=== PATIENT | female | born 1995 | race Caucasian/White ===

== ENCOUNTER 2019-06-05 17:55 | Emergency (ER) | payer OTHER ==
[~2019-06-05] VITALS: Ht 162.6 cm; Wt 126.1 kg
[~2019-06-05 17:55] MED LIST: ANUSOL-HC30 GM PR; BACTRIM DS TAB1 EACH PO; CALCIO DEL MAR500 MG PO; HYDROCODONE-AC473 ML PO; LORTAB 10 MG-3473 ML PO; MACROBID 100 M100 MG PO; METFORMIN HCL500 MG PO; MIRENA1 EACH IY; NORCO 5-325 TA1 EACH PO; OXYCODONE H5 MG/5 ML PO; PRENA1 PLUS CO1 EACH PO
--- OUTSIDE RECORDS SUMMARY | 2019-06-05 18:02 | XMS ---
PreManage Notification: HAYDEN CANDELARIA Security Ash Collector Events No recent Security Events currently on file CRITERIA MET - [place] [facility] [place] [place] CLIFFORD Physician Crystal Slicer 01/29/2019-Current PHONE: Unknown RENA KAPLAN [facility] Current Michela Cortez PHONE: Unknown EDENILSON BRAND Primary Care 05/08/2016-Current PHONE: [phone] Primary Care 05/08/2016-Current PHONE: Unknown Bj has no Care Guidelines for this patient. Care History Medical/Surgical 01/26/2019 [facility] - Patient is currently established with [facility]. If patient is seen in the ED during business hours. Please contact [facility] at [facility]. Care Recommendation: This patient has had 5 or more Emergency Department visits in the last 12 months.\T\nbsp; Patient requires education on the scope and purpose of the ED as an acute care provider not a Primary Care Provider and should not be utilized for chronic conditions.\T\nbsp; These are guidelines and the provider should exercise clinical judgment when providing care. E.D. VISIT COUNT (12 MO[address] 2 [facility]. TOTAL 2 NOTE: Visits indicate total known visits. ED/UCC VISIT TRACKING (12 MO.) 06/05/2019 17:59 [facility] TYPE: Emergency COMPLAINT: - ABDOMINAL PAIN 01/25/2019 21:05 [facility] TYPE: Emergency COMPLAINT: - MULTIPLE COMPLAINTS DIAGNOSES: - Dizziness and giddiness INPATIENT VISIT TRACKING (12 MO.) No inpatient visits to display in this time frame [id number]
== END 2019-06-05 21:32 | disposition home or self-care (01) ==
LOC: ED 17:55
DX: R10.32 Left lower quadrant pain (principal); E66.9 Obesity, unspecified; Z79.899 Other long term (current) drug therapy
CPT/HCPCS: 74177; 80053; 81001; 83690; 84703; 85025; 99284-25; J2270; J2405; J7030; Q9967

== ENCOUNTER 2020-09-07 19:06 | Emergency (ER) | payer OTHER ==
[~2020-09-07] VITALS: Ht 162.6 cm; Wt 127.0 kg
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
[2020-09-07] MEDS ORDERED: ULTRAM50 MG PO (19:40)
== END 2020-09-07 19:57 | disposition home or self-care (01) ==
LOC: ED 19:06
PROC: 2W2KX4Z Dressing of Left Finger using Bandage (ICD-10-PCS; principal; 2020-09-07)
PROC: 2W2FX4Z Dressing of Left Hand using Bandage (ICD-10-PCS; 2020-09-07)
DX: T23.232A Burn of second degree of multiple left fingers (nail), not including thumb, initial encounter (principal); T23.252A Burn of second degree of left palm, initial encounter; T31.0 Burns involving less than 10% of body surface; X19.XXXA Contact with other heat and hot substances, initial encounter; E66.9 Obesity, unspecified; Z79.899 Other long term (current) drug therapy
CPT/HCPCS: 16020; 99283-25

== ENCOUNTER 2022-07-21 17:31 | Emergency (ER) | payer OTHER ==
[~2022-07-21] VITALS: Ht 162.6 cm; Wt 124.7 kg
[~2022-07-21 17:31] MED LIST changes: +ULTRAM50 MG PO
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
[2022-07-21] MEDS ORDERED: OZEMPIC0.25 MG/0. (19:31)
[2022-07-21] MEDS ORDERED: OMEPRAZOLE20 MG (19:31)
[2022-07-21] MEDS ORDERED: MELOXICAM15 MG (19:31)
[2022-07-21] MEDS ORDERED: FLUOXETINE HCL20 M1 (19:31)
[2022-07-21] MEDS ORDERED: VITAMIN D21250 MCG (19:31)
[2022-07-21] MEDS ORDERED: QUETIAPINE FUMA50 MG (19:32)
[2022-07-21] MEDS ORDERED: ACULAR5 ML OS (20:39)
== END 2022-07-21 21:16 | disposition home or self-care (01) ==
LOC: ED 17:31
DX: S05.02XA Injury of conjunctiva and corneal abrasion without foreign body, left eye, initial encounter (principal); X58.XXXA Exposure to other specified factors, initial encounter; E66.9 Obesity, unspecified; Z79.899 Other long term (current) drug therapy
CPT/HCPCS: 99283